=== PATIENT | female | born 1955 | race Caucasian/White ===

== ENCOUNTER 2017-12-23 15:07 | Emergency (ER) | payer BC, OTHER ==
[~2017-12-23] VITALS: Ht 154.9 cm; Wt 52.6 kg
[~2017-12-23 15:07] MED LIST: ADVAIR 100-501 EACH; ALENDRONATE SOD70 MG PO; ATORVASTATIN CA10 MG PO; DULERA 100 MCG/13 GM INH; METOPROLOL TART25 MG PO; PLAVIX75 MG PO; PREVACID30 MG PO; PROAIR HFA INH8.5 GM INH; SINGULAIR10 MG PO; VITAMIN D-32000 UNIT
== END 2017-12-23 17:13 | disposition short-term general hospital (02) ==
LOC: FSED 15:07
DX: M79.604 Pain in right leg (principal)